=== PATIENT | male | born 1960 | race Caucasian/White ===

== ENCOUNTER 2017-08-19 01:56 | Emergency (ER) | payer MEDICAID ==
[~2017-08-19] VITALS: Ht 175.3 cm; Wt 79.5 kg
[2017-08-19] MEDS ORDERED: LORazepam 1 MG tablet PO ONE (02:25)
[2017-08-19] MEDS ORDERED: paliperidone palmitate inj 234 MG/1.5 ML SYRINGE IM ONE (02:25)
[2017-08-19 02:38] VITALS: BP 151/101
== END 2017-08-19 02:40 | disposition home or self-care (01) ==
LOC: ER 01:57
DX: F41.0 Panic disorder [episodic paroxysmal anxiety] (principal); F12.10 Cannabis abuse, uncomplicated; G89.29 Other chronic pain; Z88.0 Allergy status to penicillin; Z88.1 Allergy status to other antibiotic agents; Z59.0 Homelessness; Z56.0 Unemployment, unspecified
CPT/HCPCS: 99283